=== PATIENT | male | born 1980 | race Caucasian/White ===

== ENCOUNTER 2019-07-28 14:36 | Emergency (ER) | payer BC ==
[2019-07-28 15:38] LABS: ALT (SGPT) 33 U/L (8-55); AST (SGOT) 22 U/L (5-34); Albumin 4.2 g/dL (3.5-5.0); Alkaline Phosphatase 93 U/L (40-110); Anion Gap 16 mmol/L (10-20); BUN (Urea Nitrogen) 10 mg/dL (8.9-20.6); Bilirubin, Total 0.6 mg/dL (0.2-1.2); Calc. Creatinine Clearance 0 mL/min (70-130); Calcium 9.6 mg/dL (7.8-10.44); Carbon Dioxide 25 mmol/L (22-29); Chloride 103 mmol/L (98-107); Estimated GFR-MDRD Greater than 90; Glucose 114 mg/dL (70-105); Potassium 3.6 mmol/L (3.5-5.1); Protein, Total 8.2 g/dL (6.0-8.3); Sodium 140 mmol/L (136-145)
[2019-07-28 15:39] LABS: Hemoglobin 16.3 g/dL (14.0-18.0); Mean Corpuscular HGB CONC 33.5 g/dL (32.0-36.0); Mean Corpuscular Hemoglobin 32.4 pg (27.0-31.0); Mean Corpuscular Volume 96.8 fL (78.0-98.0); Mean Platelet Volume 6.9 fL (7.4-10.4); Platelet Count 335 thou/uL (130-400); RBC Distribution Width 11.1 % (11.5-14.5); Red Blood Cell (RBC) Count 5.03 mill/uL (4.70-6.10); White Blood Cell (WBC) Count 12.1 thou/uL (4.8-10.8)
[2019-07-28 15:43] LABS: Band 1 % (5-11); Eosinophils 1 % (0-10); Lymphocytes 17 % (21-51); MDiff Complete? YES; Monocytes 5 % (0-10); Neutrophil 76 % (42-75); Small Platelets SLIGHT
--- NOTE | 2019-07-28 18:38 | RAD ---
PORTABLE CHEST: 07/28/19 An AP portable film at 1516 is compared with a 10/14/12 study. The heart is normal in size for body habitus and an AP film. No infiltrate or effusion was seen. Prom inence of the right paratracheal shadow is thought to be due to the patient being turned slightly. No lobar infiltrate was seen. There does appear to be a calcified granuloma in the right lung base. IMPRESSION: No acute finding POS: HOME
== END 2019-07-28 16:05 | disposition home or self-care (01) ==
LOC: BURERS 14:36
DX: J11.1 Influenza due to unidentified influenza virus with other respiratory manifestations (principal); K21.9 Gastro-esophageal reflux disease without esophagitis; I10 Essential (primary) hypertension; B19.20 Unspecified viral hepatitis C without hepatic coma; F41.9 Anxiety disorder, unspecified; F17.210 Nicotine dependence, cigarettes, uncomplicated; Z79.899 Other long term (current) drug therapy
CPT/HCPCS: 71045; 80053; 83605; 85025; 87804; 93005; 96360

== ENCOUNTER 2020-01-02 19:51 | Emergency (ER) | payer BC ==
[2020-01-02] MEDS ORDERED: Lidocaine 1% PF 5 ML VIAL ONE (20:40)
[2020-01-02] MEDS ORDERED: cefTRIAXone\\ROCEPHIN 1 GM VIAL ONE (20:40)
[2020-01-02] MEDS ORDERED: HYDROcodone/Acetaminophen 10/325 mg Tablet ONE (20:40)
== END 2020-01-02 20:49 | disposition home or self-care (01) ==
LOC: BURERS 19:51
DX: K02.9 Dental caries, unspecified (principal); I10 Essential (primary) hypertension; K21.9 Gastro-esophageal reflux disease without esophagitis; F17.210 Nicotine dependence, cigarettes, uncomplicated
CPT/HCPCS: 96372; 99283; J0696; J2001

== ENCOUNTER 2020-07-02 09:05 | Emergency (ER) | payer BC, SELFPAY ==
[2020-07-02] MEDS ORDERED: Lidocaine 1% PF 5 ML VIAL ONE (09:34)
[2020-07-02] MEDS ORDERED: Clindamycin 150 MG CAP ONE (10:02)
[2020-07-02] MEDS ORDERED: HYDROcodone/Acetaminophen 10/325 mg Tablet ONE (10:02)
== END 2020-07-02 10:34 | disposition home or self-care (01) ==
LOC: BURERS 09:05
DX: L02.416 Cutaneous abscess of left lower limb (principal); K21.9 Gastro-esophageal reflux disease without esophagitis; I10 Essential (primary) hypertension; F17.210 Nicotine dependence, cigarettes, uncomplicated; Z79.899 Other long term (current) drug therapy
CPT/HCPCS: 10060

== ENCOUNTER 2020-11-17 20:15 | Emergency (ER) | payer SELFPAY ==
[2020-11-17] MEDS ORDERED: Clindamycin 150 MG CAP ONE (20:41)
[2020-11-17] MEDS ORDERED: traMADol HCl 50 MG TAB ONE (20:41)
== END 2020-11-17 20:44 | disposition home or self-care (01) ==
LOC: BURERS 20:15
DX: N49.2 Inflammatory disorders of scrotum (principal); R59.0 Localized enlarged lymph nodes; K21.9 Gastro-esophageal reflux disease without esophagitis; I10 Essential (primary) hypertension; F17.210 Nicotine dependence, cigarettes, uncomplicated; Z79.899 Other long term (current) drug therapy
CPT/HCPCS: 99283